=== PATIENT | female | born 1985 | race American Indian/Alaskan Native ===

== ENCOUNTER 2017-05-21 10:07 | Emergency (ER) | payer MEDICAID, OTHER ==
[2017-05-21 11:46] LABS: Basophils % (Auto) 0.3 % (0.0-1.8); Eosinophils # (Auto) 0.1 K/mm3 (0.0-0.4); Hematocrit 40.6 % (30.3-42.9); Hemoglobin 13.7 gm/dl (10.1-14.3); Lymphocytes # (Auto) 0.8 K/mm3 (1.2-5.4); Lymphocytes % (Auto) 10.6 % (13.4-35.0); Mean Corpuscular HGB Conc 34 % (30-34); Mean Corpuscular Hemoglobin 32 pg (28-32); Mean Corpuscular Volume 96 fl (79-97); Monocytes # (Auto) 0.5 K/mm3 (0.0-0.8); Monocytes % (Auto) 7.1 % (0.0-7.3); Platelet Count 293 K/mm3 (140-440); Red Blood Count 4.22 M/mm3 (3.65-5.03); Red Cell Distribution Width 12.9 % (13.2-15.2)
[2017-05-21 12:08] LABS: Alanine Aminotransferase 24 units/L (7-56); Albumin 4.3 g/dL (3.9-5); BUN/Creatinine Ratio 20; Blood Urea Nitrogen 10 mg/dL (7-17); Calcium 9.5 mg/dL (8.4-10.2); Hemolysis Index 4
[2017-05-21 12:08] LABS: Bilirubin,Urine NEG (Negative); Blood,Urine MOD (Negative); Color,Urine Yellow (Yellow); Mucus,Urine FEW /HPF; Nitrite,Urine NEG (Negative); Protein,Urine <15 mg/dL mg/dL (Negative); RBC,Urine < 1.0 /HPF (0.0-6.0)
[2017-05-21] MEDS ORDERED: BENTYL IM ONE ×2 (16:19→19:19)
--- NOTE | 2017-05-21 16:19 | Emergency Department Report ---
Vomiting/Diarrhea - HPI Chief Complaint: Abdominal Pain Stated Complaint: NAUSEA/VOMITING/ABDOMINAL PAIN Time Seen by Provider: 05/21/17 16:13 Duration: Today Severity: moderate (patient states that her nausea vomiting has been moderate. Patient is unable to quantify the amount of times however she states this morning) Nausea/Vomiting Severity: Moderate Diarrhea Severity: Mild (patient has had one episode of diarrhea) Pain Location: Generalized Pain Severity: Mild (crampy intermittent generalized discomfort) Symptoms: Yes Watery Diarrhea, No Bloody diarrhea, No Fever, No Able to Tolerate Fluids, No Recent Unusual Foods, No Recent Untreated Water, No Recent use of Antibiotics, No Family w/ Similar Symptoms, No Contacts w/ Similar Symptoms, No Rash, No Hematuria, No Recent URI Symptoms ED Review of Systems ROS: Stated complaint: NAUSEA/VOMITING/ABDOMINAL PAIN Other details as noted in HPI Comment: All other systems reviewed and negative ED Past Medical Hx - Past Medical History Previous Medical History?: No Hx HIV: Yes Additional medical history: HIV - Surgical History Past Surgical History?: No Additional Surgical History: TUBAL - Social History Smoking Status: Current Every Day Smoker Substance Use Type: Alcohol - Medications Home Medications: Home Medications Medication Instructions Recorded Confirmed Last Taken Type Fluconazole [Diflucan TAB] 150 mg PO ONCE #1 tablet 04/12/15 Unknown Rx Nitrofurantoin [place]/M-Cryst 100 mg PO Q12HR #20 capsule 04/12/15 Unknown Rx [Macrobid CAP] Phenazopyridine [Pyridium] 200 mg PO BID #6 tab 04/12/15 Unknown Rx metroNIDAZOLE [Flagyl] 500 mg PO Q12HR #14 tab 04/12/15 Unknown Rx HYDROcodone/APAP 5-325 [[place] 1 each PO Q6HR PRN #20 tablet 11/25/15 Unknown Rx 5/325] Ibuprofen [Motrin 600 MG tab] 600 mg PO Q8H PRN #30 tablet 11/25/15 Unknown Rx Dicyclomine [Bentyl] 20 mg PO QID #10 tablet 05/21/17 Unknown Rx Diphenoxylate/Atropine [Lomotil] 1 tab PO Q4H PRN #7 tablet 05/21/17 Unknown Rx Ondansetron [Zofran Odt] 4 mg PO Q8HR #10 tab.rapdis 05/21/17 Unknown Rx Vomiting Diarrhea Exam - Exam General: Vital signs noted. No distress. Alert and acting appropriately. HEENT: Yes Moist Mucous Membranes, No Pharyngeal Erythema, No Pharyngeal Exudates, No Rhinorrhea, No Conjuctival Injection, No Frontal Tenderness, No Maxillary Tenderness Neck: No Adenopathy, No Rigidity Lungs: Yes Clear Lung Sounds, Yes Good Air Exchange, No Wheezes, No Stridor, No Cough, No Nasal Flaring, No Retractions, No Use of Accessory Muscles Heart exam: Regular: Yes, Murmur: No, Tachycardia: No Abdomen: Tenderness: No, Peritoneal Signs: No, Distention: No, Hyperactive Bowel sounds: No Skin exam: Rash: No, Edema: No, Normal turgor: Yes Neurologic: Alert and oriented, no deficits. Musculoskeletal: Unremarkable. ED Course Vital Signs 05/21/17 05/21/17 11:16 14:17 Temperature 98.9 F Pulse Rate 93 H 85 Respiratory 18 18 Rate Blood Pressure 110/68 Blood Pressure 116/70 [Left] O2 Sat by Pulse 100 100 Oximetry ED Medical Decision Making - Lab Data Result diagrams: 05/21/17 11:34 05/21/17 11:34 - Medical Decision Making Patient is been hydrated and given Zofran and Bentyl feels better she'll be discharged home Critical care attestation.: If time is entered above; I have spent that time in minutes in the direct care of this critically ill patient, excluding procedure time. ED Disposition Clinical Impression: Viral gastroenteritis Disposition: DC-01 TO HOME OR SELFCARE Is pt being admited?: No Does the pt Need Aspirin: No Condition: Stable Instructions: Abdominal Pain (ED), Gastroenteritis (ED) Prescriptions: Dicyclomine [Bentyl] 20 mg PO QID #10 tablet Diphenoxylate/Atropine [Lomotil] 1 tab PO Q4H PRN #7 tablet PRN Reason: Diarrhea Ondansetron [Zofran Odt] 4 mg PO Q8HR #10 tab.mo Referrals: PRIMARY CARE, [Primary Care Provider] - 3-5 Days
[2017-05-21] MEDS ORDERED: NACL 0.9% 1000 ML 1,000 ML IV ONE (16:20)
[2017-05-21] MEDS ORDERED: ZOFRAN IV ONE (16:20)
[2017-05-21] MEDS ORDERED: ZOFRAN ONE (19:19)
[2017-05-21 20:25] VITALS: BP 112/78
== END 2017-05-21 20:50 | disposition home or self-care (01) ==
LOC: ED 10:07
DX: A08.4 Viral intestinal infection, unspecified (principal); F17.200 Nicotine dependence, unspecified, uncomplicated
CPT/HCPCS: 36415; 80053; 81001; 85025; 96361; 96372; 96374; 99283; J0500; J2405; J7030

== ENCOUNTER 2020-02-02 10:35 | Emergency (ER) | payer SELFPAY ==
[2020-02-02 10:45] VITALS: BP 123/52
--- NOTE | 2020-02-02 11:27 | Emergency Department Report ---
Suture/Staple Removal - [facility] Chief Complaint: Laceration/Recheck/Suture Stated Complaint: FINGER STITCHES REMOVED Time Seen by Provider: 02/02/20 11:21 When Sutures or [place] Placed: 8-10 Days Ago Wound Location: Right fifth digit palmar side between the MCP and PIP joint. ED Review of Systems ROS: Stated complaint: FINGER STITCHES REMOVED Other details as noted in HPI Comment: All other systems reviewed and negative Constitutional: denies: chills, fever Eyes: denies: eye pain, eye discharge, vision change ENT: denies: ear pain, throat pain Respiratory: denies: cough, shortness of breath, wheezing Cardiovascular: denies: chest pain, palpitations Endocrine: no symptoms reported Gastrointestinal: denies: abdominal pain, nausea, diarrhea Genitourinary: denies: urgency, dysuria, discharge Musculoskeletal: denies: back pain, joint swelling, arthralgia Skin: denies: rash, lesions Neurological: denies: headache, weakness, paresthesias Psychiatric: denies: anxiety, depression Hematological/Lymphatic: denies: easy bleeding, easy bruising ED Past Medical Hx - Past Medical History Hx HIV: Yes Additional medical history: HIV - Surgical History Additional Surgical History: TUBAL - Social History Smoking Status: Current Every Day Smoker Substance Use Type: Alcohol - Medications Home Medications: Home Medications Medication Instructions Recorded Confirmed Last Taken Type Fluconazole (Nf) [Diflucan TAB] 150 mg PO ONCE #1 tablet 04/12/15 Unknown Rx Nitrofurantoin [place]/M-Cryst 100 mg PO Q12HR #20 capsule 04/12/15 Unknown Rx [Macrobid CAP] Phenazopyridine [Pyridium] 200 mg PO BID #6 tab 04/12/15 Unknown Rx metroNIDAZOLE [Flagyl] 500 mg PO Q12HR #14 tab 04/12/15 Unknown Rx HYDROcodone/APAP 5-325 [[place] 1 each PO Q6HR PRN #20 tablet 11/25/15 Unknown Rx 5/325] Ibuprofen [Motrin 600 MG tab] 600 mg PO Q8H PRN #30 tablet 11/25/15 Unknown Rx Dicyclomine [Bentyl] 20 mg PO QID #10 tablet 05/21/17 Unknown Rx Diphenoxylate/Atropine [Lomotil] 1 tab PO Q4H PRN #7 tablet 05/21/17 Unknown Rx Ondansetron [Zofran Odt] 4 mg PO Q8HR #10 tab.melanydis 05/21/17 Unknown Rx Suture Removal Exam - Exam General: Vital signs noted. No distress. Alert and acting appropriately. Wound: No Pathologic Erythema, No Tenderness, No Drainage, No Pus, No Wound Dehiscence Other Systems: All other systems reviewed and are unremarkable. Wound is clean dry and intact, no complaints. Full active range of motion without pain. ED Course Vital Signs 02/02/20 10:41 Temperature 98.6 F Pulse Rate 74 Respiratory 18 Rate Blood Pressure 123/52 O2 Sat by Pulse 100 Oximetry ED Recheck MDM - Differential Diagnosis Wound Recheck, Suture/Staple Removal - Medical Decision Making Sutures were removed without complication. Wound is clean dry and intact and healing well. Patient was discharged in stable condition questions were answered. Critical care attestation.: If time is entered above; I have spent that time in minutes in the direct care of this critically ill patient, excluding procedure time. ED Disposition Clinical Impression: Visit for suture removal Disposition: DC-01 TO HOME OR SELFCARE Is pt being admited?: No Condition: Stable Instructions: Suture Removal (ED) Time of Disposition: 11:27
== END 2020-02-02 11:38 | disposition home or self-care (01) ==
LOC: ED 10:35
DX: S61.216D Laceration without foreign body of right little finger without damage to nail, subsequent encounter (principal); X58.XXXD Exposure to other specified factors, subsequent encounter